=== PATIENT | female | born 1965 | race Caucasian/White ===

== ENCOUNTER 2021-06-16 06:31 | Day surgery (SDC) | payer OTHER ==
[2021-06-16] MEDS ORDERED: Sodium Chloride 0.9% 1,000 ML IV SCH (07:00)
[2021-06-16] MEDS ORDERED: Midazolam 1 MG/ML 2 ML SDV ONE (07:20)
[2021-06-16] MEDS ORDERED: fentaNYL 100 MCG/2 ML SDV ONE (07:20)
[2021-06-16] MEDS ORDERED: Propofol 200 MG/20 ML SDV ONE ×2 (07:20→07:53)
== END 2021-06-16 09:40 | disposition home or self-care (01) ==
LOC: JP.SDS 06:31
PROVIDERS: ATTEND Internal Medicine
DX: R19.5 Other fecal abnormalities (principal); K63.89 Other specified diseases of intestine; Z88.0 Allergy status to penicillin
CPT/HCPCS: J2250; J2704; J3010; J7030